=== PATIENT | male | born 1965 | race Caucasian/White ===

== ENCOUNTER 2017-09-17 20:08 | Emergency (ER) | payer SELFPAY ==
[~2017-09-17] VITALS: Ht 170.2 cm; Wt 93.0 kg
[2017-09-17 20:09] VITALS: BP 178/105; PULSE 112; PULSE 98; RESP 16; TEMP 98.3; O2SAT 87
[2017-09-17] MEDS ORDERED: SODIUM CHLOR 0.9% 1000 ML INJ 1,000 ML IV SCH (20:30)
[2017-09-17 20:32] LABS: AUTOMATED NEUTROPHIL # 4.2 TH/MM3 (1.8-7.7); BASOPHIL # 0.1 TH/MM3 (0-0.2); BASOPHIL % 0.6 % (0.0-2.0); EOSINOPHIL # 0.2 TH/MM3 (0-0.4); EOSINOPHIL % 2.2 % (0.0-4.0); HEMATOCRIT 43.5 % (39.0-51.0); HEMO FLAGS DIFF FINAL; LYMPH % 35.4 % (9.0-44.0); MEAN CELL VOLUME 97.3 FL (80.0-100.0); MEAN CORPUSCULAR HEMOGLOBIN 32.8 PG (27.0-34.0); MEAN CORPUSCULAR HGB CONC 33.7 % (32.0-36.0); MONO % 10.7 % (0.0-8.0); NEUT % 51.1 % (16.0-70.0); PLATELET COUNT 251 TH/MM3 (150-450); RED BLOOD COUNT 4.46 MIL/MM3 (4.50-5.90); RED CELL DISTRIBUTION WIDTH 11.6 % (11.6-17.2); WHITE BLOOD COUNT 8.4 TH/MM3 (4.0-11.0)
[2017-09-17 20:41] LABS: CHLORIDE 102 MEQ/L (98-107); POTASSIUM 3.3 MEQ/L (3.5-5.1); SODIUM (NA) 137 MEQ/L (136-145)
--- NOTE | 2017-09-17 20:44 | PD ---
Physical Exam Date Seen by Provider: Sep 17, 2017 Time Seen by Provider: 20:42 Data Data Last Documented VS Vital Signs Date Time Temp Pulse Resp B/P (MAP) Pulse Ox O2 Delivery O2 Flow Rate FiO2 09/17/17 20:09 98.3 98 16 178/105 (129) 87 Orders Orders Electrocardiogram (09/17/17 20:15) Complete Blood Count With Diff (09/17/17 20:15) Comprehensive Metabolic Panel (09/17/17 20:15) Prothrombin Time / Inr (Pt) (09/17/17 20:15) Act Partial Throm Time (Ptt) (09/17/17 20:15) Urinalysis - C+S If Indicated (09/17/17 20:15) Thyroid Stimulating Hormone (09/17/17 20:15) Chest, Single Ap (09/17/17 20:15) Ct Brain W/O Iv Contrast(Rout) (09/17/17 20:15) Iv Access Insert/Monitor (09/17/17 20:15) Ecg Monitoring (09/17/17 20:15) Oximetry (09/17/17 20:15) Drug Screen, Random Urine (09/17/17 20:15) Alcohol (Ethanol) (09/17/17 20:15) Sodium Chlor 0.9% 1000 Ml Inj (Ns 1000 M (09/17/17 20:30) Labs Laboratory Tests Test 09/17/17 20:14 White Blood Count 8.4 TH/MM3 Red Blood Count 4.46 MIL/MM3 Hemoglobin 14.6 GM/DL Hematocrit 43.5 % Mean Corpuscular Volume 97.3 FL Mean Corpuscular Hemoglobin 32.8 PG Mean Corpuscular Hemoglobin Concent 33.7 % Red Cell Distribution Width 11.6 % Platelet Count 251 TH/MM3 Mean Platelet Volume 7.3 FL Neutrophils (%) (Auto) 51.1 % Lymphocytes (%) (Auto) 35.4 % Monocytes (%) (Auto) 10.7 % Eosinophils (%) (Auto) 2.2 % Basophils (%) (Auto) 0.6 % Neutrophils # (Auto) 4.2 TH/MM3 Lymphocytes # (Auto) 3.0 TH/MM3 Monocytes # (Auto) 0.9 TH/MM3 Eosinophils # (Auto) 0.2 TH/MM3 Basophils # (Auto) 0.1 TH/MM3 CBC Comment DIFF FINAL Differential Comment Prothrombin Time 10.7 SEC Prothromb Time International Ratio 1.1 RATIO Activated Partial Thromboplast Time 27.9 SEC Blood Urea Nitrogen 6 MG/DL Creatinine 0.71 MG/DL Random Glucose 138 MG/DL Albumin 4.0 GM/DL Calcium Level 8.4 MG/DL Aspartate Amino Transf (AST/SGOT) 195 U/L Alanine Aminotransferase (ALT/SGPT) 208 U/L Sodium Level 137 MEQ/L Potassium Level 3.3 MEQ/L Chloride Level 102 MEQ/L Carbon Dioxide Level 23.1 MEQ/L Anion Gap 12 MEQ/L Estimat Glomerular Filtration Rate 117 ML/MIN [facility] Medical Record Reviewed: Yes Supervised Visit with LIZZETTE: Yes Condition: Stable Sanjiv Arrieta Sep 17, 2017 20:44
[2017-09-17 20:45] LABS: ANION GAP 12 MEQ/L (5-15); BICARBONATE 23.1 MEQ/L (21.0-32.0); BLOOD UREA NITROGEN 6 MG/DL (7-18)
[2017-09-17 20:46] LABS: APTT (PATIENT) 27.9 SEC (24.3-30.1); INTERNATIONAL NORMALIZED RATIO 1.1 RATIO; PROTHROMBIN TIME - PATIENT 10.7 SEC (9.8-11.6)
[2017-09-17 20:48] LABS: ALT (GPT) 208 U/L (12-78); AST (GOT) 195 U/L (15-37); GLOMERULAR FILTRATION RATE 117 ML/MIN (>89)
[2017-09-17 20:49] LABS: TOTAL BILIRUBIN ADULT 0.4 MG/DL (0.2-1.0)
[2017-09-17 20:51] LABS: ALKALINE PHOSPHATASE 106 U/L (45-117)
[2017-09-17 20:53] LABS: ALCOHOL 356 MG/DL (0-5)
--- NOTE | 2017-09-17 20:57 | PD ---
HPI Chief Complaint: Neuro Symptoms/ Deficits Time Seen by Provider: 20:15 Travel History International Travel<30 days: No Contact w/Intl Traveler<30days: No Traveled to known affect area: No History of Present Illness HPI 52-year-old male complains of headache, hearing noises in the head, and trouble speaking. Patient's unable to tell me when all the symptoms started. Patient states that he has history of PTSD. Patient repeating that he wants his dog around. Patient shows me his phone with past medical history including hypertension, osteoarthritis, reflux, liver or kidney disease, GI bleed, CVA. Patient shows me on the phone that he is not on any routine medication. Patient shows me on the phone that he is not allergic to any medication. We called patient's mother on the phone and could not get any more information out of his mother. Patient denies any alcohol or illicit drug abuse. Patient walked into emergency room through the front door. I do not know how patient got to the emergency room. PFSH Past Medical History Cardiovascular Problems: Yes (HTN) Social History Tobacco Use: No Allergies-Medications (Allergen,Severity, Reaction): Coded Allergies: No Known Allergies (Unverified , 09/17/17) Reported Meds & Prescriptions Reported Meds & Active Scripts Active Reported [Generic Iron] 1 Tab PO DAILY Omeprazole 20 Mg Tab 20 Mg PO DAILY Review of Systems ROS Limitations: Speech Impaired General / Constitutional: No: Fever Eyes: No: Visual changes HENT: Positive: Headaches Cardiovascular: No: Chest Pain or Discomfort Respiratory: No: Shortness of Breath Gastrointestinal: No: Abdominal Pain Genitourinary: No: Dysuria Musculoskeletal: No: Pain Skin: No Rash Neurologic: No: Weakness Psychiatric: No: Depression Endocrine: No: Polydipsia Hematologic/Lymphatic: No: Easy Bruising Physical Exam Narrative GENERAL: Well-nourished, well-developed patient. SKIN: Focused skin assessment warm/dry. HEAD: Normocephalic. EYES: No scleral icterus. No injection or drainage. Pupils 2 mm equal reactive. NECK: Supple, trachea midline. No JVD or lymphadenopathy. No meningismus CARDIOVASCULAR: Regular rate and rhythm without murmurs, gallops, or rubs. RESPIRATORY: Breath sounds equal bilaterally. No accessory muscle use. GASTROINTESTINAL: Abdomen soft, non-tender, nondistended. MUSCULOSKELETAL: No cyanosis, or edema. BACK: Nontender without obvious deformity. No CVA tenderness. Neurologic exam: Patient's awake and alert. Patient with garbled speech. Patient moves all extremities well. No obvious focal neurological deficit. Data Data Last Documented VS Vital Signs Date Time Temp Pulse Resp B/P (MAP) Pulse Ox O2 Delivery O2 Flow Rate FiO2 09/18/17 05:06 85 16 95 09/18/17 03:10 Room Air 09/18/17 01:38 3.00 09/17/17 20:09 98.3 Orders Orders Electrocardiogram (09/17/17 20:15) Complete Blood Count With Diff (09/17/17 20:15) Comprehensive Metabolic Panel (09/17/17 20:15) Prothrombin Time / Inr (Pt) (09/17/17 20:15) Act Partial Throm Time (Ptt) (09/17/17 20:15) Urinalysis - C+S If Indicated (09/17/17 20:15) Thyroid Stimulating Hormone (09/17/17 20:15) Chest, Single Ap (09/17/17 20:15) Ct Brain W/O Iv Contrast(Rout) (09/17/17 20:15) Iv Access Insert/Monitor (09/17/17 20:15) Ecg Monitoring (09/17/17 20:15) Oximetry (09/17/17 20:15) Drug Screen, Random Urine (09/17/17 20:15) Alcohol (Ethanol) (09/17/17 20:15) Sodium Chlor 0.9% 1000 Ml Inj (Ns 1000 M (09/17/17 20:30) Labs Laboratory Tests Test 09/17/17 20:14 09/17/17 21:20 White Blood Count 8.4 TH/MM3 Red Blood Count 4.46 MIL/MM3 Hemoglobin 14.6 GM/DL Hematocrit 43.5 % Mean Corpuscular Volume 97.3 FL Mean Corpuscular Hemoglobin 32.8 PG Mean Corpuscular Hemoglobin Concent 33.7 % Red Cell Distribution Width 11.6 % Platelet Count 251 TH/MM3 Mean Platelet Volume 7.3 FL Neutrophils (%) (Auto) 51.1 % Lymphocytes (%) (Auto) 35.4 % Monocytes (%) (Auto) 10.7 % Eosinophils (%) (Auto) 2.2 % Basophils (%) (Auto) 0.6 % Neutrophils # (Auto) 4.2 TH/MM3 Lymphocytes # (Auto) 3.0 TH/MM3 Monocytes # (Auto) 0.9 TH/MM3 Eosinophils # (Auto) 0.2 TH/MM3 Basophils # (Auto) 0.1 TH/MM3 CBC Comment DIFF FINAL Differential Comment Prothrombin Time 10.7 SEC Prothromb Time International Ratio 1.1 RATIO Activated Partial Thromboplast Time 27.9 SEC Blood Urea Nitrogen 6 MG/DL Creatinine 0.71 MG/DL Random Glucose 138 MG/DL Total Protein 8.6 GM/DL Albumin 4.0 GM/DL Calcium Level 8.4 MG/DL Alkaline Phosphatase 106 U/L Aspartate Amino Transf (AST/SGOT) 195 U/L Alanine Aminotransferase (ALT/SGPT) 208 U/L Total Bilirubin 0.4 MG/DL Sodium Level 137 MEQ/L Potassium Level 3.3 MEQ/L Chloride Level 102 MEQ/L Carbon Dioxide Level 23.1 MEQ/L Anion Gap 12 MEQ/L Estimat Glomerular Filtration Rate 117 ML/MIN Thyroid Stimulating Hormone 3rd Gen 2.180 uIU/ML Ethyl Alcohol Level 356 MG/DL Urine Color STRAW Urine Turbidity CLEAR Urine pH 5.5 Urine Specific [place] 1.002 Urine Protein NEG mg/dL Urine Glucose (UA) NEG mg/dL Urine Ketones NEG mg/dL Urine Occult Blood NEG Urine Nitrite NEG Urine Bilirubin NEG Urine Leukocyte Esterase NEG Urine Squamous Epithelial Cells 0-5 /hpf Microscopic Urinalysis Comment CULT NOT INDICATED Urine Opiates Screen NEG Urine Barbiturates Screen NEG Urine Amphetamines Screen NEG Urine Benzodiazepines Screen NEG Urine Cocaine Screen NEG Urine Cannabinoids Screen NEG MDM Medical Decision Making Medical Screen Exam Complete: Yes Emergency Medical Condition: Yes Interpretation(s) Last Impressions Head CT 09/17/172014 Signed Impressions: Service Date/Time: Sunday, September 17, 2017 20:34 - CONCLUSION: No acute disease. Tye Ross MD Chest X-Ray 09/17/172014 Signed Impressions: Service Date/Time: Sunday, September 17, 2017 20:28 - CONCLUSION: No acute disease. Tye Ross MD 21:22 PM. CBC within normal limit. Potassium 3.3. Calcium 8.4. AST 195. ALT 208. Alcohol 356. 22:13 PM. UA is negative. Urine drug screen negative. Differential Diagnosis Differential diagnosis including TIA, CVA, psychiatric problem, electrolyte imbalance, drug induced mood disorder. Narrative Course 52-year-old male trouble speaking, complains of headache and hearing noises in the head. Patient will be observed in the ED and to his awake and alert oriented 3 and steady on his feet to be safely discharged. Diagnosis Primary Impression: Alcohol intoxication Qualified Codes: F10.920 - Alcohol use, unspecified with intoxication, uncomplicated Patient Instructions: General Instructions Additional Instructions: Advised [facility]. Return as needed. Med/Other Pt SpecificInfo: No Change to Meds Disposition: 01 DISCHARGE HOME Condition: Stable Praful Mendoza MD Sep 17, 2017 20:57
--- NOTE | 2017-09-17 21:02 | RADRPT ---
EXAM DATE/TIME: 09/17/2017 20:34 [facility] COMPARISON: No previous studies available for comparison. INDICATIONS : PTSD. Stuttering. Complains of headache. RADIATION DOSE: 64.10 CTDIvol (mGy) MEDICAL HISTORY : Non-responsive. PTSD? SURGICAL HISTORY : Non-responsive. ENCOUNTER: Initial ACUITY: 1 day PAIN SCALE: Non-responsive LOCATION: cranial TECHNIQUE: Multiple contiguous axial images were obtained of the head. Using automated exposure control and adj ustment of the mA and/or kV according to patient size, radiation dose was kept as low as reasonably a chievable to obtain optimal diagnostic quality images. DICOM format image data is available electro nically for review and comparison. FINDINGS: CEREBRUM: The ventricles are normal for age. No evidence of midline shift, mass lesion, hemorrhage or acute in farction. No extra-axial fluid collections are seen. POSTERIOR FOSSA: The cerebellum and brainstem are intact. The 4th ventricle is midline. The cerebellopontine angle i s unremarkable. EXTRACRANIAL: The visualized portion of the orbits is intact. SKULL: The calvaria is intact. No evidence of skull fracture. CONCLUSION: No acute disease. Tye Ross MD on September 17, 2017 at 21:00 Board Certified Radiologist. This report was verified electronically.
--- NOTE | 2017-09-17 21:12 | RADRPT ---
EXAM DATE/TIME: 09/17/2017 20:28 [facility] COMPARISON: No previous studies available for comparison. INDICATIONS : Shortness of breath. MEDICAL HISTORY : None. SURGICAL HISTORY : None. ENCOUNTER: Initial ACUITY: 1 day PAIN SCORE: 0/10 LOCATION: Bilateral chest FINDINGS: A single view of the chest demonstrates the lungs to be symmetrically aerated without evidence of mas s, infiltrate or effusion. The cardiomediastinal contours are unremarkable. Osseous structures are intact. CONCLUSION: No acute disease. Tye Ross MD on September 17, 2017 at 21:10 Board Certified Radiologist. This report was verified electronically.
[2017-09-17 21:36] LABS: BLOOD, URINE NEG (NEG); GLUCOSE,URINE NEG (NEG); KETONE, URINE NEG (NEG); NITRITE,URINE NEG (NEG); PH, URINE 5.5 (5.0-8.5)
[2017-09-17 21:55] LABS: COMMENT (UR) CULT NOT INDICATED; CULTURE IF INDICATED CULT NOT INDICATED; SQUAMOUS EPITHELIAL CELL URINE 0-5 /hpf (0-5); URINE COLOR STRAW (YELLW/STRAW)
[2017-09-17 22:30] VITALS: BP 156/100; PULSE 112; RESP 18; O2SAT 92
[2017-09-17 23:24] VITALS: BP 159/94; PULSE 103; RESP 18; O2SAT 97
[2017-09-18] MEDS ORDERED: [UNRECOGNIZED DRUG - OTHER] PO (00:48)
[2017-09-18] MEDS ORDERED: OMEP20TA93 PO (00:48)
[2017-09-18 01:37] VITALS: PULSE 88
[2017-09-18 03:10] VITALS: BP 138/91; PULSE 90; RESP 18; O2SAT 94
--- NOTE | 2017-09-18 13:21 | EKG ---
Date Performed: 09/17/2017 Time Performed: 20:52:50 PTAGE: 52 years EKG: SINUS TACHYCARDIA Within normal limits NO PREVIOUS TRACING DOCTOR: Narendra Terrell Interpretating Date/Time 09/18/2017 13:19:38
== END 2017-09-18 05:06 | disposition home or self-care (01) ==
LOC: PHED 20:08
DX: F10.129 Alcohol abuse with intoxication, unspecified (principal); F43.10 Post-traumatic stress disorder, unspecified; I10 Essential (primary) hypertension; Y90.8 Blood alcohol level of 240 mg/100 ml or more; Z86.73 Personal history of transient ischemic attack (TIA), and cerebral infarction without residual deficits
CPT/HCPCS: 70450; 71010; 80053; 80307; 81001; 84443; 85025; 85610; 85730; 93005; 96360; 96361; 99285; J7030